=== PATIENT | female | born 1965 | race Caucasian/White ===

== ENCOUNTER → 2019-06-12 | Outpatient (CLI) | payer BC ==
[2019-06-13 12:57] LABS: Stool Occult Bld Immuno 1 Negative (NEGATIVE)
== END ==
LOC: LAB SHORT 09:20 → LAB 09:20
PROVIDERS: Nurse Practitioner Family
DX: Z12.11 Encounter for screening for malignant neoplasm of colon (principal); Z12.12 Encounter for screening for malignant neoplasm of rectum
CPT/HCPCS: G0328

== ENCOUNTER → 2020-02-27 | Outpatient (CLI) | payer BC, OTHER | END | disposition home or self-care (01) | LOC: EDSTATUS 10:45 → LAB 12:58 → LAB SHORT 12:58 | DX: Z01.818 Encounter for other preprocedural examination (principal); Z11.59 Encounter for screening for other viral diseases | CPT/HCPCS: U0002 ==